=== PATIENT | female | born 1980 | race Caucasian/White ===

== ENCOUNTER → 2021-04-26 | Outpatient (CLI) | payer OTHER ==
--- NOTE | 2021-04-26 11:14 | REPMRS ---
Patient History The patient states she has not had a clinical breast exam in over a year. Patient had first child at age 31. No known family history of cancer. Baseline @ 40 No breast complaints today Patient signed the MRS sheet !st covid vaccine 03/09/21-right arm-Pfizer 2nd covid vaccine 03/30/21-right arm Patient Identification Verified Patient denied No [employer] [facility] Screen Mammo: April 26, 2021 - Exam #: [id number] Bilateral CC and MLO view(s) were taken. Technologist: Dyana Alejandro, Technologist No prior studies available for comparison. FINDINGS: There are scattered fibroglandular densities. The Vol[facility] volumetric breast density category is: B. MLO views demonstrates a relatively low-density 1 cm nodule in the anterior 3rd just above the plane of the nipple. This is less than confidently identified on CC projection image but appears to be lateral to the plane of the nipple. This merits further evaluation. It may be a cyst. MLO tomography demonstrates a 2nd smaller well-circumscribed nodular density in the upper-outer quadrant which is not seen on the CC projection image. There is no other evidence of dominant mass, architectural distortion, or grouped microcalcification typical of malignancy. 3-D tomosynthesis shows no additional findings. Assessment: BI-RADS/ACR category 0 mammogram, Incomplete: Need additional imaging evaluation and/or prior mammograms for comparison. Recommendation Ultrasound and special view mammogram of the left breast. This patient's [facility] Lifetime Breast Cancer RIsk is estimated at 13.9 %. This mammogram was interpreted with the aid of an FDA-approved computer-aided dectection system. Electronically Signed By: Adriel Jamison MD 04/26/21 [id number]
== END ==
LOC: M WHC 09:51
PROVIDERS: ATTEND Family Medicine
DX: R92.2 Inconclusive mammogram (principal)

== ENCOUNTER → 2021-05-19 | Outpatient (CLI) | payer OTHER ==
--- NOTE | 2021-05-19 14:43 | REP ---
INDICATION: ADDITIONAL VIEWS LT BREAST. COMPARISON: Prior screening examination 04/26/2020 TECHNIQUE: Diagnostic left mammogram was obtained in the CC and MLO projections using magnified spot compression views in 2D and 3D modalities. In addition, ultrasonography was obtained with shear wave elastography. FINDINGS: In the retroareolar region of the left breast there are 2 small persistent nodular densities. Diagnostic ultrasonography shows both areas to be anechoic and exhibiting posterior wall enhancement with increased through transmission. Shear wave elastography was performed on both of these showing very low kPa values. One of these measures 0.5 x 0.4 by 0.6 cm and the other measures 0.5 cm in its greatest dimension. No solid or irregular lesions are identified. IMPRESSION: BIRADS/ACR category 2 benign findings. There are 2 simple cysts in the left breast as described above. There is no mammographic evidence or ultrasonographic evidence of malignant alteration.. This mammogram was interpreted with the aid of an FDA-approved computer-aided detection system. The patient letter being requested is M1. RECOMMENDATION: Repeat screening mammography recommended 1 year (for women over 40). <Electronically signed by Ba Joe > 05/19/21 [id number]
== END ==
LOC: M WHC 13:08
PROVIDERS: ATTEND Family Medicine
DX: Z12.31 Encounter for screening mammogram for malignant neoplasm of breast (principal)